=== PATIENT | female | born 1950 | race Caucasian/White ===

== ENCOUNTER 2022-07-06 08:33 | Emergency (ER) | payer MEDICARE | END 2022-07-06 12:42 | disposition home or self-care (01) | LOC: JP.ED 08:33 | DX: S82.142A Displaced bicondylar fracture of left tibia, initial encounter for closed fracture (principal); Z91.09 Other allergy status, other than to drugs and biological substances; Z88.1 Allergy status to other antibiotic agents; W54.1XXA Struck by dog, initial encounter | CPT/HCPCS: 73700-LT; 99283 ==